=== PATIENT | male | born 1975 | race Caucasian/White ===

== ENCOUNTER 2016-11-11 11:54 | Emergency (ER) | payer BC ==
[~2016-11-11] VITALS: Ht 2.5 cm; Wt 77.3 kg
[2016-11-11 12:00] VITALS: TEMP 98.6
[2016-11-11] MEDS ORDERED: CLARITIN 1010 MG/TAB PO (12:02)
[2016-11-11 12:56] LABS: BASO # 0.1 (0.0-0.2); EOS # 0.6 (0.0-0.7); EOS % 7.9 % (0-4.0); GRAN # 3.1 (1.4-6.5); GRAN % 39.9 % (42.2-75.2); HEMATOCRIT 43.5 % (42.0-52.0); LYMPH # 3.4 (1.2-3.4); MEAN CELL VOLUME 90 fl (80.0-100.0); MEAN CORPUSCULAR HEMOGLOBIN 31 pg (27.0-31.0); MEAN CORPUSCULAR HGB CONC 35 g/dl (33.0-37.0); MEAN PLATELET VOLUME 11.1 fl (7.4-10.4); MONO # 0.6 (0.1-0.6); MONO % 7.6 % (1.7-9.3); PLATELET COUNT 262 K/mm3 (130-400); RED BLOOD COUNT 4.81 M/mm3 (4.20-5.60); WHITE BLOOD COUNT 7.9 K/mm3 (4.8-10.8)
[2016-11-11 13:00] LABS: PH 8 (5-8); SQUAMOUS EPITHELIAL None Seen /hpf; URINE APPEARANCE Clear; URINE BACTERIA None Seen /hpf; URINE BILIRUBIN Negative (NEGATIVE); URINE BLOOD Negative (NEGATIVE); URINE COLOR Yellow; URINE GLUCOSE Negative (NEGATIVE); URINE KETONE Negative (NEGATIVE); URINE RBC 0-2 /hpf; URINE UROBILINOGEN Negative (NEGATIVE)
[2016-11-11 13:08] LABS: ADJUSTED CALCIUM 8.9 mg/dL (8.4-10.2); ALBUMIN 4.4 gm/dL (3.5-5.0); BILIRUBIN,TOTAL 0.9 mg/dL (0.0-1.0); CALCIUM 9.2 mg/dL (8.4-10.2); CREATININE, serum 0.88 mg/dL (0.66-1.25); POTASSIUM 3.6 mmol/L (3.4-5.0); TOTAL PROTEIN 7.8 gm/dL (6.4-8.2)
[2016-11-11] MEDS ORDERED: NORCO 325 MG-51 TAB PO (14:44)
[2016-11-11] MEDS ORDERED: PHENERGAN 25 TA25 MG PO (14:44)
[2016-11-11] MEDS ORDERED: FLOMAX 0.40.4 MG/CAP PO (14:45)
[2016-11-11 15:12] VITALS: BP 117/67; PULSE 73
== END 2016-11-11 15:14 | disposition home or self-care (01) ==
LOC: COL.ER 11:54
PROVIDERS: Physician Assistant
DX: N20.1 Calculus of ureter (principal)
CPT/HCPCS: J1170; J1885; J2550; J7030